=== PATIENT | female | born 1980 | race Caucasian/White ===

== ENCOUNTER 2022-05-15 12:30 | Day surgery (SDC) | payer MEDICARE, OTHER ==
[~2022-05-15] VITALS: Ht 157.5 cm; Wt 56.7 kg
[2022-05-15] MEDS ORDERED: EPIPEN0.3 MG/0.3 (13:23)
== END 2022-05-15 15:15 | disposition home or self-care (01) ==
LOC: ORSCSDS 12:30
PROVIDERS: Internal Medicine Gastroenterology
PROC: 0DB58ZX Excision of Esophagus, Via Natural or Artificial Opening Endoscopic, Diagnostic (ICD-10-PCS; principal; 2022-05-15 14:00)
PROC: 0DB68ZX Excision of Stomach, Via Natural or Artificial Opening Endoscopic, Diagnostic (ICD-10-PCS; principal; 2022-05-15 14:00)
PROC: 0DB98ZX Excision of Duodenum, Via Natural or Artificial Opening Endoscopic, Diagnostic (ICD-10-PCS; principal; 2022-05-15 14:00)
PROC: 0D757ZZ Dilation of Esophagus, Via Natural or Artificial Opening (ICD-10-PCS; principal; 2022-05-15 14:00)
DX: R13.10 Dysphagia, unspecified (principal); R10.13 Epigastric pain; A18.01 Tuberculosis of spine; K44.9 Diaphragmatic hernia without obstruction or gangrene
CPT/HCPCS: 88305; 88342; J0330; J0461; J2250; J2405; J2704; J7120